=== PATIENT | male | born 1965 | race African-American/Black ===

== ENCOUNTER 2016-07-30 08:36 | Emergency (ER) | payer MEDICAID ==
[~2016-07-30] VITALS: Ht 188 cm; Wt 93.0 kg
[~2016-07-30 08:36] MED LIST: ASPIR 8181 MG ORAL; HYDROCORTISO1 APPLIC TOPIC; KEFLEX500 MG ORAL; NITROFURANTOIN100 M2 ORAL; OMEPRAZOLE10 M1 ORAL; OMEPRAZOLE20 M2 ORAL; PHENAZOPYRIDIN200 MG ORAL; RISPERDAL2 MG ORAL; TRAMADOL HCL50 MG ORAL; TYLENOL325 MG ORAL; VALIUM2 MG ORAL; [UNRECOGNIZED DRUG - REMARK]; [UNRECOGNIZED DRUG - REMARK]
[2016-07-30 09:32] LABS: APPEARANCE,URINE CLEAR; KETONES,URINE NEGATIVE (NEGATIVE); LEUKOCYTE ESTERASE ,URINE 2+ (NEGATIVE); NITRITE,URINE NEGATIVE (NEGATIVE); PH,URINE 5 (4.5-8.0); PROTEIN,URINE NEGATIVE (NEGATIVE); UROBILINOGEN,URINE NORMAL MG/DL (0.0-1.0)
[2016-07-30 09:43] LABS: BACTERIA,URINE FEW /HPF; SQUAMOUS EPITHELIAL CELL,UR OCCASIONAL /LPF (NONE/OCC)
[2016-07-30] MEDS ORDERED: Methocarbamol 750mg tab ORAL ONE (09:45)
[2016-07-30] MEDS ORDERED: ROBAXIN-750750 MG PO (09:50)
--- NOTE | 2016-07-30 09:56 | Emergency Room Report ---
History of Present Illness General Chief Complaint: Lower Extremity Injury Source: Patient Present Illness HPI 51 YOM with known chronic low back pain with acute worsening of right low back, radiating to thigh since yesterday. Denies acute trauma, falls. Denies lower extremity weakness, urinary/fecal incontinence, fever/chills. Taking Soma for pain. Denies urinary complaints. Allergies: Coded Allergies: IBUPROFEN (Unverified Adverse Reaction, Unknown, STOMACH PAIN, 10/18/15) Patient History Past Medical History: other Past Surgical History: none Pertinent Family History: none Immunizations: UTD Reviewed Nursing Documentation: PMH: Agreed, PSxH: Agreed Nursing Documentation-PMH Past Medical History: No History, Except For Hx Gastrointestinal Problems: Yes - Acid reflux Hx Neurological Problems: Yes - back spasm/hip pain Review of Systems All Other Systems: negative except mentioned in HPI Physical Exam Vital Signs Date Time Temp Pulse Resp B/P Pulse Ox O2 Delivery O2 Flow Rate FiO2 07/30/16 08:54 98.1 117 18 144/90 98 Room Air Sp02 EP Interpretation: reviewed, normal General Appearance: normal inspection, well appearing, no apparent distress, alert, GCS 15, non-toxic, other - Ambulating with cane Head: normocephalic, atraumatic Eyes: bilateral eye EOMI, bilateral eye PERRL ENT: normal ENT inspection, hearing grossly normal, normal voice Neck: normal inspection, full range of motion, supple, no bony tend Respiratory: normal inspection, lungs clear, normal breath sounds, no respiratory distress, no retraction, no wheezing Cardiovascular #1: regular rate, rhythm, no edema Gastrointestinal: normal inspection, normal bowel sounds, non tender, soft, no guarding, no hernia Genitourinary: no CVA tenderness Musculoskeletal: normal inspection, back normal, normal range of motion, Abelardo' s Sign negative, other - negative straight leg raise test Neurologic: alert, oriented x3, responsive, university controller III-XII nml as tested, motor strength/tone normal Psychiatric: normal inspection, judgement/insight normal, mood/affect normal Skin: normal inspection, normal color, no rash Lymphatic: normal inspection Medical Decision Making Diagnostic Impression: Primary Impression: Low back pain Qualified Codes: M54.41 - Lumbago with sciatica, right side; G89.29 - Other chronic pain Additional Impression: UTI (urinary tract infection) Qualified Codes: N30.01 - Acute cystitis with hematuria ER Course UA c/w UTI Robaxin given for ?LBP, sciatica. Rx Robaxin Macrobid Rx - had UTI late 2015 which was taylor-sensitive DC with PMD followup as needed Last Vital Signs Date Time Temp Pulse Resp B/P Pulse Ox O2 Delivery O2 Flow Rate FiO2 07/30/16 08:54 98.1 117 18 144/90 98 Room Air Status: improved Disposition: HOME, SELF-CARE Condition: Improved Scripts Nitrofurantoin Monohyd/M-Cryst* (MACROBID 100 MG*) 100 Mg Capsule 100 MG ORAL EVERY 12 HOURS for 7 Days, #14 CAP Prov: JIA CASTREJON M.D. 07/30/16 Methocarbamol* (ROBAXIN-750*) 750 Mg Tablet 750 MG PO TID, #30 TAB 0 Refills Prov: JIA CASTREJON M.D. 07/30/16 Referrals: [facility] (PCP) Additional Instructions: - Follow up with your pain management doctor - Take robaxin up to 3x a day for muscle relaxing JIA CASTREJON M.D. Jul 30, 2016 09:56
[2016-07-30] MEDS ORDERED: NITROFURANTOIN100 M2 ORAL (09:57)
[2016-07-30 10:05] VITALS: BP 144/90
== END 2016-07-30 10:08 | disposition home or self-care (01) ==
LOC: EMR 09:33
DX: M54.41 Lumbago with sciatica, right side (principal); G89.29 Other chronic pain; N30.01 Acute cystitis with hematuria; K21.9 Gastro-esophageal reflux disease without esophagitis; Z88.6 Allergy status to analgesic agent
CPT/HCPCS: 80300; 81003; 87086; 87181; 99284

== ENCOUNTER 2016-10-03 13:05 | Emergency (ER) | payer MEDICAID ==
[~2016-10-03] VITALS: Ht 188 cm; Wt 93.0 kg
[~2016-10-03 13:05] MED LIST changes: +ROBAXIN-750750 MG PO
[2016-10-03 13:30] VITALS: BP 153/96
[2016-10-03] MEDS ORDERED: COLACE100 MG ORAL (13:51)
[2016-10-03 13:57] VITALS: BP 153/96
--- NOTE | 2016-10-03 21:38 | Emergency Room Report ---
History of Present Illness General Chief Complaint: General Complaint Present Illness HPI The patient is a 51-year-old male presenting for bleeding upon wiping his rectum. The patient states that he noticed bright red blood on toilet paper upon wiping yesterday. He states that he frequently cleans his rectum with his finger and has not cut his nails and thinks he may have scratched the skin. Stools are described as soft and brown. He denies any pain and denies melena or hematochezia. he denies abdominal pain, constipation, diarrhea. He denies any other symptoms including nausea, vomiting, fever, chills. The patient states he last had a colonoscopy 4 years prior which found benign polyps. He is scheduled for repeat colonoscopy next year. Allergies: Coded Allergies: IBUPROFEN (Unverified Adverse Reaction, Unknown, STOMACH PAIN, 10/18/15) Patient History Past Medical History: see triage record Pertinent Family History: none Reviewed Nursing Documentation: PMH: Agreed, PSxH: Agreed Nursing Documentation-PMH Hx Gastrointestinal Problems: Yes - Acid reflux Hx Neurological Problems: Yes - back spasm/hip pain Review of Systems All Other Systems: negative except mentioned in HPI Physical Exam Vital Signs Date Time Temp Pulse Resp B/P Pulse Ox O2 Delivery O2 Flow Rate FiO2 10/03/16 13:16 97.9 94 20 153/96 98 Room Air Sp02 EP Interpretation: reviewed, normal General Appearance: no apparent distress, alert, GCS 15, non-toxic Head: normocephalic, atraumatic Eyes: bilateral eye PERRL, bilateral eye normal inspection Gastrointestinal: normal bowel sounds, non tender, soft, non-distended, no guarding, no rebound Rectal: normal exam, normal rectal tone, heme negative stool Genitourinary: normal inspection, no CVA tenderness Musculoskeletal: back normal, gait/station normal, normal range of motion, non- tender Neurologic: alert, oriented x3, responsive, motor strength/tone normal, sensory intact, speech normal Psychiatric: judgement/insight normal, memory normal, mood/affect normal, no suicidal/homicidal ideation Skin: normal color, no rash, warm/dry, well hydrated Medical Decision Making PA Attestation Dr. Monet is my supervising physician. Patient management was discussed with my supervising physician Diagnostic Impression: Primary Impression: Skin abrasion ER Course The patient is a 51-year-old male presenting for bleeding upon wiping his rectum. DDx considered: Hemorrhoids, abrasion, CA, among others. PE: vitals WNL. NAD Abd is soft and non tender. Rectal exam unremarkable. Normal rectal tone. No hemorrhoids seen or palpated. No masses. No abrasions seen. Heme negative stool Pt will be DC'ed home and will FU with PMD. ER precautions given Last Vital Signs Date Time Temp Pulse Resp B/P Pulse Ox O2 Delivery O2 Flow Rate FiO2 10/03/16 13:57 97.9 94 20 153/96 98 Room Air Status: improved Disposition: HOME, SELF-CARE Condition: Improved Scripts Docusate Sodium* (COLACE*) 100 Mg Capsule 100 MG ORAL TWICE A DAY, #10 CAP Prov: KYLE MEDINA 10/03/16 Patient Instructions: Abrasion Additional Instructions: I discussed my findings with the patient. All questions and concerns have been answered. Treatment and medication compliance have been addressed. I advised the patient that they need to follow up with PMD in 3-5 days. Return to ED if symptoms worsen, new symptoms arise, or if needed for any reason. Patient verbalized understanding of discharge instructions. The patient will keep his scheduled appointment for colonoscopy and followup with primary doctor as soon as possible KYLE MEDINA October 03, 2016 21:38
== END 2016-10-03 13:57 | disposition home or self-care (01) ==
LOC: EMR 13:42
DX: T14.8 Other injury of unspecified body region (principal); X58.XXXA Exposure to other specified factors, initial encounter; Y93.9 Activity, unspecified; Y99.9 Unspecified external cause status; K62.5 Hemorrhage of anus and rectum; Z88.6 Allergy status to analgesic agent; K21.9 Gastro-esophageal reflux disease without esophagitis; R25.2 Cramp and spasm; M25.559 Pain in unspecified hip
CPT/HCPCS: 99283

== ENCOUNTER 2016-10-18 09:20 | Emergency (ER) | payer MEDICAID ==
[~2016-10-18] VITALS: Ht 188 cm; Wt 95.3 kg
[~2016-10-18 09:20] MED LIST changes: +COLACE100 MG ORAL
[2016-10-18 10:15] VITALS: BP 136/91
[2016-10-18 10:29] LABS: APPEARANCE,URINE CLEAR; KETONES,URINE 1+ (NEGATIVE); LEUKOCYTE ESTERASE ,URINE 3+ (NEGATIVE); NITRITE,URINE POSITIVE (NEGATIVE); PH,URINE 5 (4.5-8.0); PROTEIN,URINE 1+ (NEGATIVE); UROBILINOGEN,URINE NORMAL MG/DL (0.0-1.0)
[2016-10-18 10:38] LABS: SQUAMOUS EPITHELIAL CELL,UR FEW /LPF (NONE/OCC); WBC,URINE 40-60 /HPF (0 - 0)
[2016-10-18 10:39] LABS: BACTERIA,URINE MODERATE /HPF
--- NOTE | 2016-10-18 12:52 | Emergency Room Report ---
History of Present Illness General Chief Complaint: Male Urogenital Problems Source: Patient Present Illness HPI This patient states that he has had dysuria and hematuria for the past week. He states that he had the same symptoms about a month ago. He was seen here. He was placed on antibiotics but states that these symptoms resolved within about 5 days again on antibiotics and he stopped the antibiotics. He states he been doing well until about a week ago and developed a dysuria and hematuria again. He denies fever or chills. He denies nausea or vomiting. He denies possibility of sexually transmitted disease as he states that he has not had sex for the past 3 years. He denies abdominal pain. He denies chest pain or shortness of breath. He has no other complaints. Allergies: Coded Allergies: IBUPROFEN (Unverified Adverse Reaction, Unknown, STOMACH PAIN, 10/18/15) Patient History Past Medical History: see triage record, GERD, other - chronic pain Reviewed Nursing Documentation: PMH: Agreed, PSxH: Agreed Nursing Documentation-PMH Past Medical History: No History, Except For Hx Gastrointestinal Problems: Yes - Acid reflux Hx Neurological Problems: Yes - back spasm/hip pain Review of Systems All Other Systems: negative except mentioned in HPI Physical Exam Vital Signs Date Time Temp Pulse Resp B/P Pulse Ox O2 Delivery O2 Flow Rate FiO2 10/18/16 09:37 98.2 95 16 136/91 98 Room Air Sp02 EP Interpretation: reviewed, normal General Appearance: no apparent distress, alert, GCS 15, non-toxic Head: normocephalic, atraumatic Eyes: bilateral eye PERRL, bilateral eye normal inspection ENT: hearing grossly normal, normal pharynx, no angioedema, normal voice Neck: full range of motion, supple/symm/no masses Respiratory: no respiratory distress, no retraction, no accessory muscle use, speaking full sentences Gastrointestinal: normal bowel sounds, non tender, soft, non-distended, no guarding, no rebound Rectal: deferred Musculoskeletal: back normal, gait/station normal, normal range of motion, non- tender Neurologic: alert, oriented x3, responsive, motor strength/tone normal, sensory intact, speech normal Psychiatric: judgement/insight normal, memory normal, mood/affect normal, no suicidal/homicidal ideation Skin: normal color, no rash, warm/dry, well hydrated Medical Decision Making Diagnostic Impression: Primary Impression: Prostatitis ER Course Patient presents with findings on the urinalysis consistent with infection. Likely this patient has prostatitis and he was not fully treated because he stopped his antibiotics early about a month ago when he was diagnosed. The patient has no systemic symptoms and so this time I am not concerned about pyelonephritis or sepsis. The patient was educated that he should follow up closely with a urologist. He indicated understanding. I will start the patient on a 14 day course of ciprofloxacin for prostatitis. The patient given return precautions and followup instructions. Labs Test 10/18/16 10:00 Urine Color Pale yellow Urine Appearance Clear Urine pH 5 (4.5-8.0) Urine Specific [place] 1.025 (1.005-1.035) Urine Protein 1+ (NEGATIVE) Urine Glucose (UA) 3+ (NEGATIVE) Urine Ketones 1+ (NEGATIVE) Urine Occult Blood 3+ (NEGATIVE) Urine Nitrite Positive (NEGATIVE) Urine Bilirubin Negative (NEGATIVE) Urine Urobilinogen Normal MG/DL (0.0-1.0) Urine Leukocyte Esterase 3+ (NEGATIVE) Urine RBC 5-10 /HPF (0 - 0) Urine WBC 40-60 /HPF (0 - 0) Urine Squamous Epithelial Cells Few /LPF (NONE/OCC) Urine Bacteria Moderate /HPF (NONE) Chest X-Ray Diagnostic Results Chest X-Ray Ordered: No Last Vital Signs Date Time Temp Pulse Resp B/P Pulse Ox O2 Delivery O2 Flow Rate FiO2 10/18/16 10:15 98.2 16 136/91 98 Room Air 10/18/16 09:37 95 Disposition: HOME, SELF-CARE Condition: Improved Referrals: [facility] (PCP) PHONG SHAH D.O. Oct 18, 2016 12:52
[2016-10-18] MEDS ORDERED: CIPROFLOXACIN500 M2 ORAL (12:53)
[2016-10-18 13:22] VITALS: BP 149/99
== END 2016-10-18 13:22 | disposition home or self-care (01) ==
LOC: EMR 10:13
DX: N41.9 Inflammatory disease of prostate, unspecified (principal); R30.0 Dysuria; R31.9 Hematuria, unspecified; Z88.6 Allergy status to analgesic agent; K21.9 Gastro-esophageal reflux disease without esophagitis; G89.29 Other chronic pain; M62.830 Muscle spasm of back; M25.559 Pain in unspecified hip
CPT/HCPCS: 81003; 87086; 87181; 99283

== ENCOUNTER 2017-06-05 11:23 | Emergency (ER) | payer MEDICAID ==
[~2017-06-05] VITALS: Ht 188 cm; Wt 94.8 kg
[~2017-06-05 11:23] MED LIST changes: +CIPROFLOXACIN500 M2 ORAL
[2017-06-05 11:59] LABS: APPEARANCE,URINE CLEAR; BILIRUBIN, URINE NEGATIVE (NEGATIVE); COLOR,URINE PALE YELLOW; GLUCOSE, URINE (UA) 4+ (NEGATIVE); KETONES,URINE NEGATIVE (NEGATIVE); LEUKOCYTE ESTERASE ,URINE 2+ (NEGATIVE); NITRITE,URINE NEGATIVE (NEGATIVE); PH,URINE 5 (4.5-8.0); PROTEIN,URINE NEGATIVE (NEGATIVE); UROBILINOGEN,URINE NORMAL MG/DL (0.0-1.0)
[2017-06-05] MEDS ORDERED: PHENAZOPYRIDIN200 MG ORAL (12:50)
[2017-06-05] MEDS ORDERED: NITROFURANTOIN100 M2 ORAL (12:50)
[2017-06-05 13:02] VITALS: BP 158/100
[2017-06-05 13:03] VITALS: BP 158/100
--- NOTE | 2017-06-09 14:31 | Emergency Room Report ---
History of Present Illness General Chief Complaint: Male Urogenital Problems Source: Patient Present Illness HPI Patient is a 51-year-old male presented after an increased dysuria. The patient gradual onset of symptoms associated with some urinary hesitancy. Patient had not been vomiting. He denied any flank pain.The patient been having symptoms for several days. Allergies: Coded Allergies: IBUPROFEN (Unverified Adverse Reaction, Unknown, STOMACH PAIN, 10/18/15) Patient History Past Medical History: see triage record Reviewed Nursing Documentation: PMH: Agreed, PSxH: Agreed Nursing Documentation-PMH Past Medical History: No History, Except For Hx Gastrointestinal Problems: Yes - Acid reflux Hx Neurological Problems: Yes - back spasm/hip pain Review of Systems All Other Systems: negative except mentioned in HPI Physical Exam Vital Signs Date Time Temp Pulse Resp B/P (MAP) Pulse Ox O2 Delivery O2 Flow Rate FiO2 06/05/17 11:25 97.7 99 16 155/90 98 Room Air Sp02 EP Interpretation: reviewed, normal General Appearance: normal inspection, well appearing, no apparent distress, alert, GCS 15 Head: atraumatic ENT: normal ENT inspection, hearing grossly normal, normal voice Neck: normal inspection, full range of motion, supple, no bony tend Respiratory: normal inspection, lungs clear, normal breath sounds, no respiratory distress, no retraction, no wheezing Cardiovascular #1: regular rate, rhythm, no edema Gastrointestinal: normal inspection, normal bowel sounds, non tender, soft, no guarding, no hernia Genitourinary: no CVA tenderness Musculoskeletal: normal inspection, back normal, normal range of motion Neurologic: normal inspection, alert, oriented x3, responsive, fur plucker III-XII nml as tested, speech normal Psychiatric: normal inspection, judgement/insight normal, mood/affect normal Skin: normal inspection, normal color, no rash Medical Decision Making Diagnostic Impression: Primary Impression: Cystitis ER Course Patient presented for dysuria. Differential diagnosis included was not limited to appendicitis, urinary tract infection, urethritis, herpes among others.Urinalysis showed evidence of UTI.patient did not appear to be septic. The patient is advised to follow up with primary care doctor in 1-2 days. Patient is advised to return if any worsening condition or if any changes in status that are concerning. This report is dictated with [employer] marketing account executive software which may occasionally lead to discrepancies related to use of this software. Labs Test 06/05/17 11:45 Urine Color Pale yellow Urine Appearance Clear Urine pH 5 (4.5-8.0) Urine Specific [place] 1.020 (1.005-1.035) Urine Protein Negative (NEGATIVE) Urine Glucose (UA) 4+ (NEGATIVE) Urine Ketones Negative (NEGATIVE) Urine Occult Blood 1+ (NEGATIVE) Urine Nitrite Negative (NEGATIVE) Urine Bilirubin Negative (NEGATIVE) Urine Urobilinogen Normal MG/DL (0.0-1.0) Urine Leukocyte Esterase 2+ (NEGATIVE) Urine RBC 0-2 /HPF (0 - 0) Urine WBC 15-20 /HPF (0 - 0) Urine Squamous Epithelial Cells Occasional /LPF Urine Bacteria Occasional /HPF (NONE) Last Vital Signs Date Time Temp Pulse Resp B/P (MAP) Pulse Ox O2 Delivery O2 Flow Rate FiO2 06/05/17 13:03 97.7 80 16 158/100 98 Room Air Status: improved Disposition: HOME, SELF-CARE Condition: Stable Scripts Phenazopyridine Hcl* (PYRIDIUM*) 200 Mg Tablet 200 MG ORAL THREE TIMES A DAY, #14 TAB 0 Refills Prov: Sunday Treviño 06/05/17 Nitrofurantoin Monohyd/M-Cryst* (MACROBID 100 MG*) 100 Mg Capsule 100 MG ORAL EVERY 12 HOURS, #20 CAP Prov: Sunday Treviño 06/05/17 Referrals: NON PHYSICIAN (PCP) Patient Instructions: Urinary Tract Infection Sunday Treviño Jun 09, 2017 14:31
== END 2017-06-05 13:05 | disposition home or self-care (01) ==
LOC: EMR 12:05
DX: N30.90 Cystitis, unspecified without hematuria (principal); K21.9 Gastro-esophageal reflux disease without esophagitis; Z88.6 Allergy status to analgesic agent
CPT/HCPCS: 81003; 87086; 87181; 99283

== ENCOUNTER 2017-08-20 08:50 | Emergency (ER) | payer MEDICAID ==
[~2017-08-20] VITALS: Ht 188 cm; Wt 93.0 kg
[2017-08-20] MEDS ORDERED: NORCO 5-325 TA1 EACH ORAL (09:04)
[2017-08-20] MEDS ORDERED: ACETAMINOPHEN325 M1 ORAL (09:04)
[2017-08-20] MEDS ORDERED: SOMA350 MG PO (09:04)
[2017-08-20 09:08] VITALS: BP 140/92
[2017-08-20 09:17] LABS: APPEARANCE,URINE SLIGHTLY CLOUDY; BILIRUBIN, URINE NEGATIVE (NEGATIVE); COLOR,URINE PALE YELLOW; GLUCOSE, URINE (UA) 2+ (NEGATIVE); KETONES,URINE NEGATIVE (NEGATIVE); LEUKOCYTE ESTERASE ,URINE 3+ (NEGATIVE); NITRITE,URINE NEGATIVE (NEGATIVE); PH,URINE 5 (4.5-8.0); PROTEIN,URINE 3+ (NEGATIVE); UROBILINOGEN,URINE NORMAL MG/DL (0.0-1.0)
--- NOTE | 2017-08-20 09:35 | Emergency Room Report ---
History of Present Illness General Chief Complaint: Male Urogenital Problems Source: Patient Present Illness HPI The patient presents with dysuria for 3 days. He has history of urinary urinary tract infections with prior question of possible prostatitis. He denies any rectal pain at this time. He does have some lower back pain which he has had with prior UTIs. Denies fevers or chills. No NVD. No URI sy. No rashes. No headache. Denies sexual activity. Pain rated 5/10, mostly at end of urination. No incontinence. He was last treated for a UTI in May. That culture grew Escherichia coli that was sensitive to the Macrobid that he was treated with. He was also sensitive to ciprofloxacin. He has a prescription for renal ultrasound and cystoscopy dated in July. He states he has not been able to get this scheduled. He has chronic back pain. Allergies: Coded Allergies: IBUPROFEN (Unverified Adverse Reaction, Unknown, STOMACH PAIN, 10/18/15) Patient History Past Medical History: see triage record Social History: Denies: smoking Social History Narrative at home Reviewed Nursing Documentation: PMH: Agreed; PSxH: Agreed Nursing Documentation-PMH Hx Gastrointestinal Problems: Yes - Acid reflux Hx Neurological Problems: Yes - back spasm/hip pain Review of Systems All Other Systems: negative except mentioned in HPI Physical Exam Vital Signs Date Time Temp Pulse Resp B/P (MAP) Pulse Ox O2 Delivery O2 Flow Rate FiO2 08/20/17 08:58 98.3 95 17 140/92 97 Room Air 98.2 Sp02 EP Interpretation: reviewed, normal General Appearance: normal inspection, well appearing, no apparent distress, GCS 15 Head: normocephalic, atraumatic Eyes: bilateral eye normal inspection, bilateral eye PERRL ENT: hearing grossly normal, normal voice, moist mucus membranes Neck: full range of motion, supple Respiratory: no respiratory distress, speaking full sentences Cardiovascular #1: normal peripheral pulses, regular rate, rhythm Cardiovascular #2: 2+ radial (L) Gastrointestinal: normal inspection, normal bowel sounds, non tender Genitourinary: no CVA tenderness Musculoskeletal: no calf tenderness Neurologic: alert, normal gait, grossly normal Psychiatric: mood/affect normal Skin: no rash Medical Decision Making Diagnostic Impression: Primary Impression: UTI (urinary tract infection) Qualified Codes: N30.00 - Acute cystitis without hematuria ER Course Patient presents with dysuria with a history of UTIs in the past. He denies any rectal pain. He also denies fevers or chills. Differential includes UTI, prostatitis, pyelonephritis amongst others. He has no CVA tenderness at this time and therefore pyelonephritis is less likely. He be evaluated with urinalysis. The patient is refusing analgesia at this moment. Can't exclude prostatitis as patient has back pain (but denies rectal pain). Urinalysis has pyuria. The patient is given ciprofloxacin and Pyridium. The patient is stable for outpatient observation and treatment Laboratory Tests Test 08/20/17 09:09 Urine Color Pale yellow Urine Appearance Slightly cloudy Urine pH 5 (4.5-8.0) Urine Specific [place] 1.025 (1.005-1.035) Urine Protein 3+ (NEGATIVE) H Urine Glucose (UA) 2+ (NEGATIVE) H Urine Ketones Negative (NEGATIVE) Urine Occult Blood 4+ (NEGATIVE) H Urine Nitrite Negative (NEGATIVE) Urine Bilirubin Negative (NEGATIVE) Urine Urobilinogen Normal MG/DL (0.0-1.0) Urine Leukocyte Esterase 3+ (NEGATIVE) H Urine RBC 5-10 /HPF (0 - 0) H Urine WBC 40-60 /HPF (0 - 0) H Urine Squamous Epithelial Cells Occasional /LPF Urine Bacteria Few /HPF (NONE) Last Vital Signs Date Time Temp Pulse Resp B/P (MAP) Pulse Ox O2 Delivery O2 Flow Rate FiO2 08/20/17 10:10 98.2 90 17 144/89 97 Room Air 98.2 Status: improved Disposition: HOME, SELF-CARE Condition: Improved Scripts Phenazopyridine Hcl* (PYRIDIUM*) 100 Mg Tablet 100 MG ORAL THREE TIMES A DAY, #9 TAB Prov: Raghu Parra M.D. 08/20/17 Ciprofloxacin Hcl* (CIPROFLOXACIN HCL*) 500 Mg Tablet 500 MG ORAL Q12H, #20 TAB 0 Refills Prov: Raghu Parra M.D. 08/20/17 Referrals: [facility] (PCP) Raghu Parra M.D. Aug 20, 2017 09:35
[2017-08-20] MEDS ORDERED: Ciprofloxacin 500mg tab ORAL ONE (09:45)
[2017-08-20] MEDS ORDERED: CIPROFLOXACIN500 M2 ORAL (10:00)
[2017-08-20] MEDS ORDERED: PHENAZOPYRIDIN100 MG ORAL (10:00)
[2017-08-20 10:09] VITALS: BP 144/89
[2017-08-20 10:10] VITALS: BP 144/89
== END 2017-08-20 10:10 | disposition home or self-care (01) ==
LOC: EMR 09:10
DX: N39.0 Urinary tract infection, site not specified (principal); G89.29 Other chronic pain; M54.9 Dorsalgia, unspecified; Z88.6 Allergy status to analgesic agent
CPT/HCPCS: 81003; 87086; 87181; 99284

== ENCOUNTER 2017-08-27 13:01 | Emergency (ER) | payer MEDICAID ==
[~2017-08-27] VITALS: Ht 188 cm; Wt 93.0 kg
[~2017-08-27 13:01] MED LIST changes: +ACETAMINOPHEN325 M1 ORAL; +NORCO 5-325 TA1 EACH ORAL; +PHENAZOPYRIDIN100 MG ORAL; +SOMA350 MG PO
--- NOTE | 2017-08-27 14:24 | Emergency Room Report ---
History of Present Illness General Chief Complaint: Male Urogenital Problems Source: Patient Present Illness HPI 52 yo male patient presents to ER complaining of burning pain with urination. Reports mild relief of symptoms since that time. Patient reports seen in ER 1 week ago, treated for UTI. Patient taking Cipro and Pyridium for symptoms. Reports stopped taking Pyridium. Patient reports not skipping doses of medication. Reports symptoms resolved but still has some "burning pain". Denies genital or penile rash or pain. Patient denies testicular pain or swelling. Reports seen by primary care provider 4 days ago and sent for renal US, has not had imaging performed during this time. Denies hematuria, penile discharge. Denies hx of prostate problems. Denies fever, chest pain, SOB. Denies recent sexual activity for several years. Allergies: Coded Allergies: IBUPROFEN (Unverified Adverse Reaction, Unknown, STOMACH PAIN, 10/18/15) Patient History Past Medical History: see triage record Reviewed Nursing Documentation: PMH: Agreed; PSxH: Agreed Nursing Documentation-PMH Hx Gastrointestinal Problems: Yes - Acid reflux Hx Neurological Problems: Yes - back spasm/hip pain Review of Systems All Other Systems: negative except mentioned in HPI Physical Exam Vital Signs Date Time Temp Pulse Resp B/P (MAP) Pulse Ox O2 Delivery O2 Flow Rate FiO2 08/27/17 13:07 98.2 85 16 140/90 97 Room Air 98.2 Sp02 EP Interpretation: reviewed, normal General Appearance: well appearing, no apparent distress, alert, GCS 15, non- toxic Head: normocephalic, atraumatic Eyes: bilateral eye normal inspection, bilateral eye PERRL ENT: hearing grossly normal, normal pharynx, no angioedema, normal voice, uvula midline, moist mucus membranes Neck: full range of motion Respiratory: lungs clear, normal breath sounds, no rhonchi, no respiratory distress, no accessory muscle use, no wheezing, speaking full sentences Cardiovascular #1: regular rate, rhythm, no edema Gastrointestinal: non tender, soft, no mass, non-distended, no guarding, no rebound Rectal: deferred Genitourinary: no CVA tenderness, deferred Musculoskeletal: back normal, digits/nails normal, gait/station normal, normal range of motion, non-tender Neurologic: alert, oriented x3, responsive, motor strength/tone normal, sensory intact Psychiatric: mood/affect normal Skin: no rash Medical Decision Making PA Attestation Dr. Trejo is my supervising Physician whom patient management has been discussed with. Diagnostic Impression: Primary Impression: Burning with urination ER Course Pt presents to ED c/o urinary symptoms. DDX considered but are not limited to cystitis, pyelonephritis, STI, nephrolithiasis. Patient had referral for renal US, will perform in ER. Low suspicion for ER. VITAL SIGNS are WNL, patient is afebrile. Ordered UA and renal US. ER COURSE Previous labs reviewed, patient UTI susceptible to current abx treatment UA results show no nitrites, no leukocyte esterase, improved since previous visit. Does not require new abx treatment. If concern for STI, followup with STI clinic for testing and treatment. Denies STI concern. Renal US negative. No kidney stones. Copy of report provided to patient. Patient instructed to continue taking Pyridium. SE turns urine orange. Instructed to followup at scheduled appointment for GI, urology and prostate specialist. Return to ER if symptoms worsen. Patient is resting comfortably in chair, nontoxic appearing, in no acute distress. Patient states they feel better and is ready to go home. DISCHARGE Complete abx prescription previously prescribed. Patient is stable for discharge. Patient resting comfortably, in no acute distress, nontoxic appearing, talking without difficulty, smiling and laughing. Will provide with patient care instructions and any necessary prescriptions. Patient understands and agrees to treatment plan. Patient encouraged to drink plenty of fluids. Patient to take medication as instructed. Care plan and follow-up instructions provided. Patient questions asked and answered. Reports understanding and agreement to treatment plan. Patient instructed to follow-up with primary care provider in 3 - 5 days. ER precautions given. Patient instructed to return to ER immediately for any new or worsening of symptoms. Including but not limited to fever, abdominal pain , intractable vomiting. Labs Test 08/27/17 17:06 Urine Color Pale yellow Urine Appearance Clear Urine pH 6.5 (4.5-8.0) Urine Specific [place] 1.010 (1.005-1.035) Urine Protein Negative (NEGATIVE) Urine Glucose (UA) Negative (NEGATIVE) Urine Ketones Negative (NEGATIVE) Urine Occult Blood Negative (NEGATIVE) Urine Nitrite Negative (NEGATIVE) Urine Bilirubin Negative (NEGATIVE) Urine Urobilinogen Normal MG/DL (0.0-1.0) Urine Leukocyte Esterase 1+ (NEGATIVE) Urine RBC 0-2 /HPF (0 - 0) Urine WBC 0-2 /HPF (0 - 0) Urine Squamous Epithelial Cells None /LPF (NONE/OCC) Urine Bacteria Few /HPF (NONE) CT/MRI/US Diagnostic Results CT/MRI/US Diagnostic Results : Imaging Test Ordered: renal US Impression negative Last Vital Signs Date Time Temp Pulse Resp B/P (MAP) Pulse Ox O2 Delivery O2 Flow Rate FiO2 08/27/17 13:07 98.2 85 16 140/90 97 Room Air 98.2 Disposition: HOME, SELF-CARE Condition: Stable Referrals: [facility] (PCP) Patient Instructions: Urethritis, Adult, Urinary Tract Infection Additional Instructions: Followup with primary care provider in 3 -5 days and at scheduled appointments. Drink plenty of water. Followup at scheduled appointments for prostate and GI doctors. Take medications as directed. Continue to take medications as previously instructed. Patient questions asked and answered. ER precautions given, patient instructed to return to ER immediately for any new or worsening of symptoms. Christiano Troncoso Aug 27, 2017 14:24
--- NOTE | 2017-08-27 16:38 | Diagnostic Imaging Report ---
Indication: Bilateral flank pain Technique: Grayscale and duplex images of the kidneys, retroperitoneum, and bladder were obtained. Comparison: none Findings: Right kidney measures 10.7 cm in length. Left kidney measures 10.3 cm in length. Both kidneys demonstrate normal echogenicity. No hydronephrosis. No focal abnormality. Normal inferior vena cava. Bladder is normal. Prevoid bladder volume is 205 mL. Postvoid bladder volume is 9 mL Impression: negative.
[2017-08-27 17:23] VITALS: BP 140/90
[2017-08-27 17:34] LABS: APPEARANCE,URINE CLEAR; BILIRUBIN, URINE NEGATIVE (NEGATIVE); COLOR,URINE PALE YELLOW; GLUCOSE, URINE (UA) NEGATIVE (NEGATIVE); KETONES,URINE NEGATIVE (NEGATIVE); LEUKOCYTE ESTERASE ,URINE 1+ (NEGATIVE); NITRITE,URINE NEGATIVE (NEGATIVE); PH,URINE 6.5 (4.5-8.0); PROTEIN,URINE NEGATIVE (NEGATIVE); UROBILINOGEN,URINE NORMAL MG/DL (0.0-1.0)
[2017-08-27 18:40] VITALS: BP 140/90
== END 2017-08-27 18:40 | disposition home or self-care (01) ==
LOC: EMR 13:38
DX: N39.0 Urinary tract infection, site not specified (principal); R10.9 Unspecified abdominal pain; Z88.6 Allergy status to analgesic agent; K21.9 Gastro-esophageal reflux disease without esophagitis
CPT/HCPCS: 76770; 81003; 99284

== ENCOUNTER 2018-02-02 09:08 | Emergency (ER) | payer MEDICAID ==
[~2018-02-02] VITALS: Ht 188 cm; Wt 90.7 kg
[2018-02-02 09:45] VITALS: BP 133/79
[2018-02-02 09:50] VITALS: BP 139/84
--- NOTE | 2018-02-02 09:50 | Emergency Room Report ---
History of Present Illness General Chief Complaint: Dizziness Source: Patient Present Illness HPI Patient 52-year-old male brought in by self after increased dizziness. Patient reports having increased dizziness with standing. He reports having symptoms for several weeks. The patient additionally reports having decreased ability to achieve an erection. He denies any fever. He denies any dysuria. He reports having prior history of schizophrenia however he does not report any active hallucinations. He states he is taking his medications. He denies any smoking or alcohol use. He states is previously a smoker. Allergies: Coded Allergies: IBUPROFEN (Unverified Adverse Reaction, Unknown, STOMACH PAIN, 02/02/18) Patient History Past Medical History: see triage record Reviewed Nursing Documentation: PMH: Agreed; PSxH: Agreed Nursing Documentation-PMH Past Medical History: No History, Except For Hx Gastrointestinal Problems: Yes - Acid reflux Hx Neurological Problems: Yes - back spasm/hip pain Review of Systems All Other Systems: negative except mentioned in HPI Physical Exam Vital Signs Date Time Temp Pulse Resp B/P (MAP) Pulse Ox O2 Delivery O2 Flow Rate FiO2 02/02/18 09:11 98.0 88 16 142/89 97 Room Air 98.1 General Appearance: well appearing, no apparent distress, alert, GCS 15, non- toxic Head: normocephalic, atraumatic ENT: hearing grossly normal, normal voice Neck: full range of motion, supple Respiratory: no respiratory distress, speaking full sentences Cardiovascular #1: normal inspection, normal peripheral pulses, regular rate, rhythm, no edema Gastrointestinal: normal inspection Musculoskeletal: normal inspection, no calf tenderness Neurologic: normal inspection, alert, oriented x3, responsive, higher level teaching assistant III-XII nml as tested, normal gait Psychiatric: mood/affect normal Skin: no rash Medical Decision Making Diagnostic Impression: Primary Impression: Orthostatic dizziness ER Course Patient presented for dizziness. Differential diagnosis included but not limited to anemia, orthostatic hypotension, urinary tract infection, anemia, arrhythmia, abdominal aortic aneurysm, CVA, subarachnoid hemorrhage, benign positional vertigo.The patient stated that his blood pressure medication had been recently adjusted. The is likely the cause the patient's orthostatic dizziness. Patient advised to see his primary care physician for adjustment of his blood pressure medications. The patient has additional concerns of inability to achieve an erection. He is advised follow-up with his primary care physician for this. This report is dictated with [employer] freezer machine operator software which may occasionally lead to discrepancies related to use of this software. Last Vital Signs Date Time Temp Pulse Resp B/P (MAP) Pulse Ox O2 Delivery O2 Flow Rate FiO2 02/02/18 09:11 98.0 88 16 142/89 97 Room Air 98.1 Status: improved Disposition: HOME, SELF-CARE Condition: Stable Referrals: NON PHYSICIAN (PCP) Sunday Treviño MD Feb 02, 2018 09:50
[2018-02-02 09:54] VITALS: BP 142/90
[2018-02-02 10:09] VITALS: BP 142/90
[2018-02-02 10:16] VITALS: BP 138/70
== END 2018-02-02 10:18 | disposition home or self-care (01) ==
LOC: EMR 09:38
DX: R42 Dizziness and giddiness (principal); K21.9 Gastro-esophageal reflux disease without esophagitis; Z88.6 Allergy status to analgesic agent
CPT/HCPCS: 82962; 99282